=== PATIENT | female | born 1930 | race Caucasian/White ===

== ENCOUNTER → 2017-08-07 | Outpatient (CLI) | payer MEDICARE, OTHER ==
[~2017-08-07] MED LIST: AC325T PO; ALN70T PO; ALPR.25T PO; ALPR0.25 PO; AMLO5TAB2 PO; ASP81TEC PO; BENZ0.5T3 PO; BPR75T PO; CALC-250 PO; CALC-656 PO; CARB1TAB2 PO; CLON0.5T3 PO; CTLP20T PO; CYAN10007 PO; DONE5TAB4 PO; DVL250TEC PO; LACT1CAP39 PO; LEVO750T9 PO; LISI10TA2 PO; LISI20TA PO; MAGN400C PO; MEMA5TAB2 PO; OMG1KC PO
[2017-08-07 17:48] LABS: BILIRUBIN,URINE NEGATIVE (NEGATIVE); KETONES,URINE 1+ (NEGATIVE); LEUKOCYTE ESTERASE ,URINE 3+ (NEGATIVE); NITRITE,URINE POSITIVE (NEGATIVE); PH,URINE 7 (5-9); PROTEIN,URINE 3+ (NEGATIVE); UROBILINOGEN,URINE NORMAL (NORMAL)
[2017-08-07 17:56] LABS: WBC,URINE TNTC /HPF
--- NOTE | 2017-08-10 11:57 | Physician Query-Final Dx ---
CLEO WATERS 08/10/17 1157: Clinic Account Progress/Dx Physician Query: Please give diagnosis FOR THE [facility] - THANKS Date of Service Aug 07, 2017 at 17:44 JANA WASHINGTON MD 08/12/17 0911: Clinic Account Progress/Dx DIAGNOSIS: Diagnosis URINARY RETENTION, FEVER, WORSENING CONFUSION CLEO WATERS Aug 10, 2017 11:57 JAAN WASHINGTON MD Aug 12, 2017 09:11
== END ==
LOC: HH 17:44
PROVIDERS: ATTEND Family Medicine
DX: R33.9 Retention of urine, unspecified (principal); R50.9 Fever, unspecified; R41.0 Disorientation, unspecified
CPT/HCPCS: 81000; 87077; 87088; 87186

== ENCOUNTER → 2017-09-27 | Outpatient (CLI) | payer MEDICARE, OTHER ==
[2017-09-27 11:00] LABS: BILIRUBIN,URINE NEGATIVE (NEGATIVE); CLARITY,URINE CLEAR; COLOR,URINE YELLOW; GLUCOSE, URINE (UA) NEGATIVE (NEGATIVE); KETONES,URINE NEGATIVE (NEGATIVE); LEUKOCYTE ESTERASE ,URINE 2+ (NEGATIVE); NITRITE,URINE NEGATIVE (NEGATIVE); PH,URINE 6.5 (5-9); PROTEIN,URINE NEGATIVE (NEGATIVE); UROBILINOGEN,URINE NORMAL (NORMAL)
[2017-09-27 11:12] LABS: BACTERIA,URINE MODERATE /HPF
== END ==
LOC: CVS 10:54
PROVIDERS: ATTEND Family Medicine
DX: R82.90 Unspecified abnormal findings in urine (principal)
CPT/HCPCS: 81000; 87088

== ENCOUNTER → 2018-08-17 | Outpatient (CLI) | payer MEDICARE, OTHER | LOC: WOUNDCARE 08:51 | PROVIDERS: ATTEND Nurse Practitioner | DX: L89.523 Pressure ulcer of left ankle, stage 3 (principal); F02.80 Dementia in other diseases classified elsewhere, unspecified severity, without behavioral disturbance, psychotic disturbance, mood disturbance, and anxiety; R54 Age-related physical debility | CPT/HCPCS: 99214 ==

== ENCOUNTER → 2018-08-31 | Outpatient (CLI) | payer MEDICARE, OTHER | LOC: WOUNDCARE 09:46 | PROVIDERS: ATTEND Nurse Practitioner | DX: L89.523 Pressure ulcer of left ankle, stage 3 (principal); F02.80 Dementia in other diseases classified elsewhere, unspecified severity, without behavioral disturbance, psychotic disturbance, mood disturbance, and anxiety; R54 Age-related physical debility | CPT/HCPCS: 11042 ==

== ENCOUNTER 2019-01-06 04:47 | Emergency (ER) | payer MEDICARE, OTHER ==
[~2019-01-06] VITALS: Ht 152.4 cm; Wt 41.3 kg
[2019-01-06] MEDS: fentaNYL INJECTION 100 MCG/2 ML AMP IM ONE (05:08)
[2019-01-06] MEDS: LIDOCAINE 1% INJ 20 ML 20 ML VIAL INJ ONE (05:08)
--- NOTE | 2019-01-06 05:08 | ED Fall/Injury ---
General Chief Complaint: Trauma-Non Activation Stated Complaint: FALL Source: patient, EMS Exam Limitations: clinical condition History of Present Illness Date Seen by Provider: Jan 06, 2019 Time Seen by Provider: 04:50 Initial Comments Patient presents to ER by EMS from [facility] states with chief complaint of a fall. On her last check was at 2:30 and then rechecked at 4:30 in the morning and she was found before. She is at baseline per staff she is nonverbal, contractured, demented. She seems to understand what people were saying that she does not give any meaningful history. She is not on a blood thinner. Allergies and Home Medications Allergies Coded Allergies: No Known Drug Allergies (Unverified , 02/03/14) Home Medications Alendronate Sodium 70 Mg Tab, 70 MG PO Kiser@06, (Reported) Amlodipine Besylate 5 Mg Tab, 5 MG PO DAILY Prescribed by: ANNE-MARIE GARCIA on 02/21/14728 Aspirin 81 Mg Tabec, 81 MG PO DAILY, (Reported) Calcium Carbonate/Vitamin D3 1 Each Tablet, 1 EACH PO DAILY Prescribed by: NISHANT WALTERS on 02/18/142243 Cyanocobalamin 1,000 Mcg Tablet.sa, 1,000 MCG PO DAILY Prescribed by: NISHANT WALTERS on 02/18/142243 Divalproex Sodium 250 Mg Tab, 125 MG PO BID Prescribed by: ANNE-MARIE GARCIA on 02/21/14728 Donepezil Hcl 5 Mg Tab, 5 MG PO HS Prescribed by: ANNE-MARIE GARCIA on 02/21/14728 Lactobacillus Rhamnosus 1 Cap Capsule, 1 CAP PO BID Prescribed by: NISHANT WALTERS on 02/18/142243 Levofloxacin 750 Mg Tablet, 750 MG PO UD One by mouth every 48 hours. Start June 06 Prescribed by: NINOSKA HAY on 06/04/15 1608 Lisinopril 10 Mg Tablet, 10 MG PO DAILY Prescribed by: ANNE-MARIE GARCIA on 02/21/14728 Magnesium Oxide 400 Mg Capsule, 1,000 MG PO DAILY Prescribed by: NISHANT WALTERS on 02/18/142243 Memantine Hcl 5 Mg Tablet, 5 MG PO DAILY Prescribed by: ANNE-MARIE GARCIA on 02/21/14728 Patient Home Medication List Home Medication List Reviewed: Yes Review of Systems Review of Systems Constitutional: see HPI (patient's unable to give any meaningful review of systems. She is nonverbal.) Eyes: Denies Blindness Respiratory: No cough Cardiovascular: No chest pain Gastrointestinal: No diarrhea, No vomiting Past Xofsczi-Xhqsml-Dakyjf Hx Patient Social History Alcohol Use: Denies Use Recreational Drug Use: No Smoking Status: Never a Smoker Recent Foreign Travel: No Contact w/Someone Who Travel: No Past Medical History Hypertension Dementia Reproductive Disorders: No UTI-Chronic Osteoporosis Anxiety, Depression Family Medical History Cancer 19 FATHER Dementia 19 MOTHER Family history: Alzheimer's disease 19 MOTHER Family history: Diabetes mellitus 19 FATHER 19 MOTHER Myocardial infarction 19 MOTHER No Family History of: Abdominal aortic aneurysm Mclennan's disease Alcoholism Aphasia Cancer of colon Cataract Chest pain Congenital heart disease Congestive heart failure Cystic fibrosis Dysphagia Family history: Allergy Family history: Arthritis Family history: Asthma Family history: Breast disease Family history: Cardiovascular disease Family history: Coronary thrombosis Family history: Gastrointestinal disease Family history: Glaucoma Family history: Hypertension Family history: Osteoporosis Family history: Thyroid disorder Headache Hearing loss Heart disease Hereditary disease History of - anemia History of - disorder History of - respiratory disease History of drug abuse Human immunodeficiency virus (HIV) seropositivity Hypercholesterolemia Infertile Kidney disease Malignant neoplasm of lung Parkinson's disease Prostate cancer Psychotic disorder Seizure disorder Visual impairment Physical Exam Vital Signs Vital Signs - First Documented 01/06/19 04:50 Temp 97.0 Pulse 65 Resp 16 B/P (MAP) 201/98 (132) Pulse Ox 98 O2 Delivery Room Air Capillary Refill : Height, Weight, BMI Height: 5'3" Weight: 125lbs. 6.0oz. [id number]; BMI Method:Estimated General Appearance: cachetic (contractured and chronically ill) HEENT: PERRL/EOMI (4 mm bilateral equal round reactive to light and accommodation.), normal ENT inspection, TMs normal, pharynx normal Neck: non-tender, normal inspection Cardiovascular: normal peripheral pulses, regular rate, rhythm, no murmur Respiratory: chest non-tender, lungs clear, normal breath sounds, no respiratory distress, no accessory muscle use Peripheral Pulses: 2+ Dorsalis Pedis (R), 2+ Left Dors-Pedis (L) Gastrointestinal: normal bowel sounds, non tender, soft Pelvic: normal external exam, other (nontender to direct palpation) Back: normal inspection, no vertebral tenderness Extremities: non-tender, normal inspection, normal capillary refill, other ( contractures all 4 extremities) Neurologic/Psychiatric: alert Procedures/Interventions Wound Location: Face Other Wound Location Above the left eyebrow Wound's Depth, Shape: superficial, linear, sub Q Wound Explored: clean Irrigated w/ Saline (ccs): 50 Betadine Prep?: Yes Anesthesia: 1% Lidocaine Volume Anesthetic (ccs): 3 Wound Debrided: minimal Suture: Prolene Suture Size: 4-0 Number of Sutures: 3 Progress Wounds cleaned thoroughly using chlorhexidine soap water and explored. The wound edges were infiltrated with 3 cc of 1% lidocaine without epinephrine. The patient tolerated the procedure well. Reapproximated the skin edges applied 3 simple interrupted Prolene stitches 4-0 Prolene Was used. Wound was hemostatic. There is quite a bit of epidermis scraped off around the wound epidermis was anchored for the sutures. Progress/Results/Core Measures Results/Orders My Orders Orders - NEHA HOWARD Lidocaine 1% Inj 20 Ml (Xylocaine 1% Inj (01/06/19 05:00) Ct Head/Cervical Spine Wo (01/06/19 05:00) Fentanyl Injection (Sublimaze Injection (01/06/19 05:00) Dipht,Pertuss(Acell),Tet Adult (Boostrix (01/06/19 05:15) Medications Given in ED Current Medications Medications Dose Ordered Sig/Maycol Route Start Time Stop Time Status Last Admin Dose Admin Diphtheria/ Tetanus/Acell Pertussis 0.5 ml ONCE ONCE IM 01/06/19 05:15 01/06/19 05:16 DC 01/06/19 05:32 0.5 ML Fentanyl Citrate 25 mcg ONCE ONCE IM 01/06/19 05:00 01/06/19 05:04 DC 01/06/19 05:08 25 MCG Lidocaine HCl 20 ml ONCE ONCE INJ 01/06/19 05:00 01/06/19 05:04 DC 01/06/19 05:08 20 ML Vital Signs/I&O 01/06/19 04:50 Temp 97.0 Pulse 65 Resp 16 B/P (MAP) 201/98 (132) Pulse Ox 98 O2 Delivery Room Air Progress Progress Note : Time: 05:06 Progress Note She has a laceration on her left eyebrow. We'll plan to stitch this up using some lidocaine. We'll get a CT of her head and neck. Tetanus shot. Palpated over her entire body all 4 extremities and nothing was particularly tender, erythematous or deformed. Diagnostic Imaging Diagonstic Imaging: CT (noncontrast) Plain Films/CT/US/NM/MRI: c-spine, head Comments No acute calvarial fracture, midline shift, mass effect or subdural hematoma or intraparenchymal hemorrhage. There is chronic volume loss of the brain noted. The cervical spine has contractures lordosis and advanced osteoarthritis but no acute osseous abnormality, subluxation etc. Reviewed: Reviewed by Me Departure Impression Primary Impression: Laceration of face Qualified Codes: S01.81XA - Laceration without foreign body of other part of head, initial encounter Additional Impressions: Facial contusion Qualified Codes: S00.83XA - Contusion of other part of head, initial encounter Fall from bed, initial encounter Disposition: 01 HOME, SELF-CARE Condition: Improved Departure-Patient Inst. Decision time for Depature: 05:41 Referrals: JANA WASHINGTON MD (PCP/Family) Primary Care Physician Patient Instructions: Laceration Repair With Stitches (DC), Minor Head Injury ( DC) Add. Discharge Instructions: Sutures come out in 10-14 days. Keep clean with regular soap and water. Cover with a thin amount of Vaseline and a dressing changed daily and as necessary for soiling. All discharge instructions reviewed with patient and/or family. Voiced understanding. NEHA HOWARD Jan 06, 2019 05:08
[2019-01-06] MEDS: TETANUS,DIPTH,PERTUSS P/F (BOOSTRIX) 0.5 ML VIAL IM ONE (05:32)
[2019-01-06 06:05] VITALS: BP 198/88
--- NOTE | 2019-01-06 06:26 | Diagnostic Imaging Report ---
PROCEDURE: CT head and CT cervical spine without contrast. TECHNIQUE: Multiple contiguous axial images were obtained through the brain and cervical spine without the use of intravenous contrast. Sagittal and coronal reformations through the cervical spine were then performed. Auto Exposure Controls were utilized during the CT exam to meet ALARA standards for radiation dose reduction. INDICATION: Head and neck pain after fall. FINDINGS: There is prominence of the ventricles and sulci. There is some chronic microvascular ischemic disease. There is no hydrocephalus. There is no midline shift. There is no intracranial mass, hemorrhage or extra-axial fluid collection. Calvarium is intact. Sinuses and mastoid air cells are clear. There is moderate cervical spondylosis. There is multilevel degenerative disc disease particularly at C5-6 and C6-7. This is associated with endplate sclerosis and marginal osteophytosis. There is, however, no fracture or traumatic subluxation. There is some post facet arthropathy. The prevertebral soft tissues are within normal limits. The lung apices are clear. IMPRESSION: Atrophy and some chronic microvascular ischemic disease, however, no acute intracranial abnormality. Moderately severe cervical spondylosis and degenerative disc disease without acute fracture or traumatic subluxation. Dictated by: Dictated on workstation # [id number]
== END 2019-01-06 06:15 | disposition home or self-care (01) ==
LOC: EDUNIT# 04:47 → ER 04:48
DX: S01.81XA Laceration without foreign body of other part of head, initial encounter (principal); I10 Essential (primary) hypertension; F03.90 Unspecified dementia, unspecified severity, without behavioral disturbance, psychotic disturbance, mood disturbance, and anxiety; M81.0 Age-related osteoporosis without current pathological fracture; F41.9 Anxiety disorder, unspecified; F32.9 Major depressive disorder, single episode, unspecified; Z87.440 Personal history of urinary (tract) infections; Z82.49 Family history of ischemic heart disease and other diseases of the circulatory system; Z23 Encounter for immunization; Z79.82 Long term (current) use of aspirin; W06.XXXA Fall from bed, initial encounter
CPT/HCPCS: 12011; 70450; 72125; 90715

== ENCOUNTER → 2019-06-29 | Outpatient (CLI) | payer MEDICARE, OTHER ==
[2019-06-29 11:26] LABS: BILIRUBIN,URINE NEGATIVE (NEGATIVE); CLARITY,URINE SLIGHTLY CLOUDY; COLOR,URINE YELLOW; GLUCOSE, URINE (UA) NEGATIVE (NEGATIVE); KETONES,URINE 1+ (NEGATIVE); LEUKOCYTE ESTERASE ,URINE 3+ (NEGATIVE); NITRITE,URINE POSITIVE (NEGATIVE); PH,URINE 6 (5-9); PROTEIN,URINE 2+ (NEGATIVE)
[2019-06-29 11:41] LABS: BACTERIA,URINE LARGE /HPF; RBC,URINE 0-2 /HPF; WBC,URINE >100 /HPF
== END ==
LOC: LABNPT 10:58
PROVIDERS: ATTEND Family Medicine
DX: R30.0 Dysuria (principal)
CPT/HCPCS: 81000; 87077; 87088; 87186

== ENCOUNTER → 2019-07-26 | Outpatient (CLI) | payer MEDICARE, OTHER ==
[2019-07-26 20:23] LABS: BILIRUBIN,URINE NEGATIVE (NEGATIVE); CLARITY,URINE CLOUDY; COLOR,URINE YELLOW; GLUCOSE, URINE (UA) NEGATIVE (NEGATIVE); KETONES,URINE 1+ (NEGATIVE); LEUKOCYTE ESTERASE ,URINE 2+ (NEGATIVE); NITRITE,URINE POSITIVE (NEGATIVE); PH,URINE 5.5 (5-9); PROTEIN,URINE NEGATIVE (NEGATIVE)
[2019-07-26 20:52] LABS: BACTERIA,URINE LARGE /HPF; WBC,URINE TNTC /HPF
== END ==
LOC: LABNPT 20:16
PROVIDERS: ATTEND Family Medicine
DX: R30.0 Dysuria (principal)
CPT/HCPCS: 81000; 87077; 87088